=== PATIENT | female | born 1965 | race Caucasian/White ===

== ENCOUNTER → 2016-10-13 | Outpatient (CLI) | payer OTHER ==
[~2016-10-13] MED LIST: ALBU1AER9 INH; ASCO500T16 PO; ASTN NAE; CLIN300C10 PO; CLON0.5T3 PO; CLR10 PO; DICY20TA35 PO; DIVA250T PO; DIVA250T4 PO; FENO145T26 PO; FLUT0.15 NAE; IMD2X PO; LIDO5DIS10 TOP; LISI-791 PO; METH500T3 PO; MONT1TAB3 PO; MULTTAB58 PO; POLY1SOL6 OP; PRAV20TA2 PO; SIME80CH12 PO
== END | disposition home or self-care (01) ==
LOC: C.LABBFT 11:24
PROVIDERS: ATTEND Psychiatry & Neurology Neurology
DX: G40.909 Epilepsy, unspecified, not intractable, without status epilepticus (principal)

== ENCOUNTER → 2016-10-14 | Outpatient (CLI) | payer OTHER | END | disposition home or self-care (01) | LOC: C.LABBFT 14:30 | PROVIDERS: ATTEND Internal Medicine | DX: R39.9 Unspecified symptoms and signs involving the genitourinary system (principal) ==

== ENCOUNTER → 2016-12-01 | Outpatient (CLI) | payer OTHER ==
[2016-12-01 18:38] LABS: URINE APPEARANCE CLEAR (CLEAR); URINE BILIRUBIN NEG (NEG); URINE COLOR YELLOW; URINE EPITHELIAL CELL AUTO >30 /lpf (0-5); URINE NITRITE NEG (NEG); URINE SPECIFIC GRAVITY 1.019 (1.000-1.030); UROBILINOGEN NEG (NEG)
[2016-12-01 18:41] LABS: MANUAL MICROSCOPIC REQUIRED? NO; REVIEW REQ? YES
== END | disposition home or self-care (01) ==
LOC: C.LABSPEC 17:45
PROVIDERS: ATTEND Internal Medicine
DX: R41.82 Altered mental status, unspecified (principal)

== ENCOUNTER → 2016-12-26 | Outpatient (CLI) | payer OTHER | END | disposition home or self-care (01) | LOC: C.LABBFT 12:00 | PROVIDERS: ATTEND Neurological Surgery | DX: I62.03 Nontraumatic chronic subdural hemorrhage (principal); R56.9 Unspecified convulsions ==

== ENCOUNTER → 2017-02-15 | Outpatient (CLI) | payer OTHER ==
--- NOTE | 2017-02-16 06:02 | PAP/PSG TECHNICIAN REPORT ---
[facility] [employer] Polysomnogram Report Study name: None Report date: 02/16/2017 Study date: 02/15/2017 Referring Physician: Dr. Chavez Name: KASH SHARMA Interpreting Physician: Billy Chavez D.O. Date of : 1965 [employer]: Denzel Baron RPSGT. Sex: Female Age: 51 StudyType: PSG Weight: 186 lbs 16 inches Height: 51 years, Height 4' 10" Neck Circum: BMI: 38.87 Medications: ALBUTEROL 90 MCG/ACT, CLONAZEPAM 0.5 MG, DIVALPROEX SODIUM 250 MG, FENOFIBRATE 145 MG, FLUTICASONE PROPIONATE 50 MCG/ACT, LEVETIRACETAM 100 MG/MLLEVOTHYROXINE SODIUM 75 MCG, LISINOPRIL 10 MG, LOPERAMIDE HCL 2 MG, MONTELUKAST SODIUM 10 MG, QUETIAPINE FUMARATE 25 MG, SENNA S, SYSTANE ULTRA Patient History PATIENT HAS HISTORY OF SNORING, FATIGUE AND EXCESSIVE DAYTIME SLEEPINESS. SHE NORMALLY TAKES NAPS EVERYDAY IN THE AFTERNOON. SHE IS HERE TODAY FOR AN EVALUATION OF ERVIN. ESS = 6 RM 1 Parameters Monitored NPSG: E1-M2, E2-M1, Fp1-M2, Fp2-M1, F3-M2, F4-M2, F4-M1, C3-M2, C4-M2, C4-M1, O1-M2, O2-M2, O2-M1, T3-M2, T4-M1, P3-M2, P4-M1, CHIN1, CHIN2, HR, EKG, Legs, PFLOW, SNOR, FLOW, CFLOW, Tidal Volume, THOR, ABDO, SpO2, PLTH, CPRESS, ETCO2 Wave, ETCO2, pH Sleep Architecture Sleep Stages Time at Lights Off 10:29:43 PM STAGES Time (min.) TST (%) Time at Lights On 5:35:13 AM Wake 10.5 -- Total Recording Time (TRT) 426.50 min. N1 10.5 3 Total Sleep Period (TSP) 425.5 min. N2 269.5 65 Total Sleep Time (TST) 415.0min. N3 92.5 22 Awake Time 11.0 min. REM 42.5 10 Wake after Sleep Onset 10.5 min. Sleep Efficiency (SE) 98 % Sleep Onset Latency (GAGANDEEP) 0.0 min. Number of Stage 1 Shifts None Awakenings 10 Stage Changes 41 Number of REM periods 3 REM 42.5 10 REM Latency 144.5 min. NREM 372.5 90 Body Position Analysis Supine Right Left Side Prone Vertical Total Sleep Time (min.) 399.1 12.5 12.9 25.39 0.0 0.0 Total Sleep Time (%) 94% 3% 3% 6 0% N/A% Total Sleep Time REM (min.) 42.5 0.0 0.0 None 0.0 0.0 Total Sleep Time NREM (min.) 347.1 12.5 12.9 None 0.0 0.0 Intermittent Wake (min.) 9.5 1.0 0.0 None 0.0 0.0 Total Sleep Period (%) 94% None None None None None Arousals Myoclonus (PLM) * Events Count Index Events Count Index Spontaneous 7 1 Events Awake (PLMW) 14 80.0 Respiratory 0 0.0 Events Asleep w/ Arousal (PLMA) 3 0.4 PLM 3 0 Events Asleep w/o Arousal (PLMS) 14 2.0 Snoring 0 0 Total Asleep 17 2.5 Total 10 1 Total 31 4 Respiratory Analysis * CA OA MA CH H RERA Total Count 0 0 0 0 31 0 31 Index 0.0 0.0 0.0 0 4.5 0 4.5 Mean Duration 0.0 0.0 0.0 0.00 21.6 0.0 21.6 Longest Duration 0.0 0.0 0.0 0.00 0.0 0.0 39.5 Respiratory Event Summary Total Supine ~Supine Right Left Prone REM NREM Apneas Count 0 0 0 0 0 N/A 0 0 Index 0.0 0 0 0.0 0.0 N/A 0 0 Hypopneas (4% Desat) Count 31 31 0 0 0 N/A 25 6 Index 4.5 4.8 0 0.0 0.0 N/A 35.3 1.0 Apneas & All Hypopneas Count 31 31 0 0 0 N/A 25 6 Index 4.5 5 0 0 0 N/A 35.3 1.0 Respiratory Events ([employer] Commerce Developer+All Hyp+RERA) Count 31 31 0 0 0 N/A 25 6 Index 4.5 5 0 0.0 0.0 N/A 35.3 1.0 Respiratory Related Arousal Count 0 31 0 0 0 N/A 0 0 Index 0.0 0 0 0 0 N/A 0 0 Snoring Analysis Supine Right Left Prone REM NREM Total Snore duration 8.5 min Snores count 682 8 1 N/A 5 686 691 Snore mean duration 0.7 Sec Snores index 105 38 5 N/A 7.1 110.5 99.9 TST with snoring (%) 2.0% Desaturation Event Summary: Minimum %SpO2 Event Count Mean/Min/Max Duration(sec.) Desaturation Index % Time In Bed > 90 19 24.8 / 4.0 / 59.3 12.5 21.5 86 - 90 12 25.0 / 4.0 / 60.0 2.3 73.3 81 - 85 10 33.4 / 6.8 / 71.2 53.0 2.7 76 - 80 3 23.7 / 6.8 / 45.3 19.1 2.2 71 - 75 0 N/A 0.0 0.2 66 - 70 0 N/A 0.0 0.0 61 - 65 0 N/A 0.0 0.1 56 - 60 0 N/A 0.0 0.0 51 - 55 0 N/A 0.0 0.0 < 50 0 N/A 0.0 0.0 Total REM NREM Awake <50% 0.0 min. 0.0 min. 0.0 min. 0.0 min. 51 - 60% 0.0 min. 0.0 min. 0.0 min. 0.0 min. 61 - 70% 0.5 min. 0.2 min. 0.0 min. 0.3 min. 71 - 80% 10.3 min. 10.2 min. 0.0 min. 0.0 min. 81 - 90% 323.0 min. 24.1 min. 293.4 min. 5.4 min. 91 - 100% 91.3 min. 8.0 min. 79.1 min. 4.2 min. Average 89 85 89 89 Minimum SpO2 63 63 84 64 Desaturation Event Index 5.2 36.7 1.4 11.4 # Desat. Events below 89% 28 22 5 1 Time(%) with Saturation below 89% 31.4 6.4 24.4 0.6 Time(min.) with Saturation below 89% 133.3 27.0 103.6 2.7 Time (mins) REM (mins) NREM (mins) % of TST SpO2 Below 90% 33 24 N9 57.0 SpO2 Below 88% 14 0 0 15 Heart Rate Analysis Min (bpm) Max (bpm) Average (bpm) Awake 74 127 84 NREM 69 90 82 REM 71 96 85 Overall 69 96 82 Supplemental O2 Values Minimum O2 level: None Value Start Time End Time [employer] Comments Ms. Sharma slept in the supine, right and left positions. No cardiac arrhythmia noted. Leg movements noted. No bruxism noted. Snoring was noted and scored as a 2 on a scale of 1 through 5. (0=no snoring, 5=snoring loud enough to be heard through a closed door or down the hernandez way) Ms. Sharma awoke to use the restroom 0 times during the night. Ms. Sharma stated I slept as well as I do when I am in my own bed. The final report will be interpreted and signed by a sleep physician. The completed physician report will then be placed in the patient medical record. Therapy (cm H2O) 0 TIB (min.) 425.5 TST (min.) 415.0 Sleep Onset (min.) 0.0 REM Onset From Sleep (min.) 144.5 Sleep Efficiency % 98 Wakefulness (%) 2 Wakefulness (min.) 11.0 NREM 1 (%) 3 NREM 1 (min.) 10.5 NREM 2 (%) 65 NREM 2 (min.) 269.5 NREM 3 (%) 22 NREM 3 (min.) 92.5 REM (%) 10 REM (min.) 42.5 # Arousals 10 Arousal Index 1 # Snore 691 Snore Index 99.9 AHI 4.5 AHI Supine 5 AHI Non-Supine 0 NREM AHI 1.0 REM AHI 35.3 RDI 4.5 # Obstructive Apnea 0 # Central Apnea 0 # Mixed Apnea 0 # Hypopneas 31 RERAs 0 Total Respiratory Events 31 Time Below SpO2 89% (min.) 130.7 Mean NREM SpO2 (%) 89 Mean REM SpO2 (%) 85 Mean Sleep SpO2 (%) 89 Min NREM SpO2 (%) 84 Min REM SpO2 (%) 63 Position Supine (min.) 399.1 Position Non-supine (min.) 25.4 LM Index Sleep 2.5 LM Index NREM 1.8 LM Index REM 8.5 Mean Heart Rate (bpm) 82 Min Heart Rate (bpm) 69
--- NOTE | 2017-02-17 04:29 | POLYSOMNOGRAPH REPORT ---
CLINICAL DATA: The patient is a 51-year-old female with a history of cerebral palsy. She had a subdural hematoma in the fall of 2016. She has had excessive daytime somnolence. She also has snoring and disturbed nocturnal sleep. Her Warren score that she completed was only a 6. However, she naps daily. Her BMI is elevated to 38.87. The patient underwent an in-lab sleep study. SLEEP ARCHITECTURE: The total sleep period was 425.5 minutes. The total sleep time was 415 minutes. The sleep efficiency was excessively high at 98%. Her sleep onset latency was 0. Wake after sleep onset was 10.5 minutes. The REM latency was prolonged to 144.5 minutes and there were 3 REM periods during the night. Sleep consisted of stage N1 3%, stage N2 65%, stage N3 22%, and stage REM 10%. AROUSAL DATA: The patient had a total of 10 arousals including 17 spontaneous and 3 PLMs. The arousal index was only 1. PERIODIC LIMB MOVEMENT DATA: The patient had 17 periodic limb movements of sleep for an index of 2.5. There were only 3 arousals associated with limb movements for a PLM arousal index of 0.4. EKG: The underlying cardiac rhythm was normal sinus. The cardiac rates ranged from 69-96 beats per minute. No arrhythmia was noted. RESPIRATORY DATA: The patient had a total of 31 respiratory events, all hypopneas. The 4% desaturation rule was utilized to score hypopneas. The apnea-hypopnea index was 4.5 which is at the upper limits of normal. The mean duration of the hypopneas was 21.6 seconds. OXIMETRY DATA: The patient had an average saturation of 89%. The minimum saturation was 63%. She had 133.3 minutes with saturations less than 89%. MANUFACTURING COST ESTIMATOR'S COMMENTS: The patient slept in the supine, right, and left positions. No cardiac arrhythmia noted. Leg movements noted. No bruxism noted. Snoring was noted and scored as a 2 on a scale of 1 through 5. IMPRESSIONS: 1. Primary snoring. 2. Nocturnal hypoxia. COMMENTS: The patient had an extremely high sleep efficiency. Overall, her sleep architecture showed decreased REM sleep. Although she did not have much apnea, the majority of the events occurred during REM sleep. The apnea-hypopnea index in REM was 35.3. She had oxygen desaturation throughout the night and much of this occurred during times of REM sleep. The patient did have increased spindles and this is likely secondary to clonazepam that she takes at bedtime. The cause for her nocturnal hypoxia is not clear. She does have a history of asthma. RECOMMENDATIONS: 1. It is advised that the patient have an overnight pulse oximetry study done. 2. The patient has an elevated body mass index of 38.87. A weight reduction program is advised. Patients typically have fewer respiratory events and less snoring when they are not in the supine position. 3. She has complaints of excessive daytime somnolence. It is unknown if any of her medications may be contributing to that. In addition to clonazepam, she takes levetiracetam and quetiapine which may cause increased sleepiness. SALLY
== END | disposition home or self-care (01) ==
LOC: C.NEUR 21:00
PROVIDERS: ATTEND Internal Medicine Pulmonary Disease
DX: G47.33 Obstructive sleep apnea (adult) (pediatric) (principal)

== ENCOUNTER → 2017-03-30 | Outpatient (CLI) | payer OTHER ==
[2017-03-30 17:41] LABS: BASO % 0.6 %; BASO ABS # 0.02 K/uL (0-0.2); COMPLETE YES; EOS % 0.9 %; HEMATOCRIT 40.5 % (37-47); IG% 4.8 %; LYMPH % 29.3 %; LYMPH ABS # 0.98 K/uL (1.2-3.4); MEAN CORPUSCULAR HEMOGLOBIN 30.2 pg (25-34); MEAN CORPUSCULAR HGB CONC 32.8 g/dl (32-36); MEAN PLATELET VOLUME 9.9 fL (7.4-10.4); MONO % 9.6 %; NEUT % 54.8 %; PLATELET COUNT 113 K/uL (130-400); WHITE BLOOD COUNT 3.35 K/uL (4.8-10.8)
[2017-03-30 18:20] LABS: ALT/SGPT 25 U/L (12-78); AST/SGOT 28 U/L (15-37); BLOOD UREA NITROGEN 6 mg/dl (7-18); BUN/CREATININE RATIO 6.8 (10-20); CALCIUM 8.4 mg/dl (8.5-10.1); CARBON DIOXIDE 27 mmol/L (21-32); CHLORIDE 98 mmol/L (98-107); CREATININE 0.87 mg/dl (0.60-1.20); GLUCOSE 178 mg/dl (70-99); POTASSIUM 4.3 mmol/L (3.5-5.1); SODIUM 137 mmol/L (136-145)
[2017-03-30 18:31] LABS: ALB/GLOB RATIO 1.2 (0.9-2); ALKALINE PHOSPHATASE 38 U/L (45-117)
== END | disposition home or self-care (01) ==
LOC: C.LABBFT 11:56
PROVIDERS: ATTEND Physician Assistant
DX: G40.909 Epilepsy, unspecified, not intractable, without status epilepticus (principal); E03.9 Hypothyroidism, unspecified

== ENCOUNTER → 2017-04-07 | Outpatient (CLI) | payer OTHER ==
[2017-04-07 17:13] LABS: CHOLESTEROL/HDL RATIO 8.1
[2017-04-08 05:54] LABS: ESTIMATED AVERAGE GLUCOSE 120 mg/dl; HA1C FLAG Normal (Normal)
== END | disposition home or self-care (01) ==
LOC: C.LABBFT 16:47
PROVIDERS: ATTEND Internal Medicine
DX: E78.00 Pure hypercholesterolemia, unspecified (principal); R73.01 Impaired fasting glucose

== ENCOUNTER → 2017-09-27 | Outpatient (CLI) | payer OTHER ==
[~2017-09-27] MED LIST changes: -SIME80CH12 PO; +SIME80CH13 PO
--- NOTE | 2017-09-27 13:11 | DIAGNOSTIC IMAGING REPORT ---
KUB HISTORY: Acute low back pain M54.5 Low back pain COMPARISON: Lumbar spine radiographs of same day, CT abdomen and pelvis 12/08/2015 FINDINGS: The bowel gas pattern is non-obstructive. There is moderate stool volume of the cecum, ascending and transverse colon. There is no organomegaly. No renal calculi. No ureteral calculi. No pneumoperitoneum or pneumatosis. No fracture. Degenerative changes are noted within the spine, pelvis and hips. IMPRESSION: 1. Nonobstructive bowel gas pattern. 2. Moderate stool volume of the cecum, ascending and transverse colon. Electronically signed by: Osvaldo Carr M.D. 09/27/2017 1:10 PM Dictated Date/Time: 09/27/2017 1:09 PM
--- NOTE | 2017-09-27 13:21 | DIAGNOSTIC IMAGING REPORT ---
LUMBAR SPINE 5 VIEWS HISTORY: M54.5 Low back pain COMPARISON: None. FINDINGS: There is no fracture. No subluxation. Small endplate osteophytes and mild disc space narrowing at L4-5 and L5-S1. The sacrum is intact. IMPRESSION: No fracture or subluxation within the lumbar spine. Minor degenerative disc disease. Electronically signed by: Neeraj Ward M.D. 09/27/2017 1:20 PM Dictated Date/Time: 09/27/2017 1:19 PM
== END | disposition home or self-care (01) ==
LOC: C.RAD1850 12:46
PROVIDERS: ATTEND Nurse Practitioner
DX: R39.9 Unspecified symptoms and signs involving the genitourinary system (principal); M51.36 Other intervertebral disc degeneration, lumbar region; M54.5 Low back pain

== ENCOUNTER → 2017-10-18 | Outpatient (CLI) | payer OTHER ==
[2017-10-18 18:01] LABS: ALBUMIN 3.8 gm/dl (3.4-5.0); ALKALINE PHOSPHATASE 49 U/L (45-117); ALT/SGPT 30 U/L (12-78); AST/SGOT 22 U/L (15-37); BLOOD UREA NITROGEN 5 mg/dl (7-18); CALCIUM 9.1 mg/dl (8.5-10.1); CARBON DIOXIDE 29 mmol/L (21-32); CREATININE 0.66 mg/dl (0.60-1.20); GLUCOSE 123 mg/dl (70-99); POTASSIUM 4.2 mmol/L (3.5-5.1); SODIUM 134 mmol/L (136-145)
[2017-10-18 18:13] LABS: CHOLESTEROL 217 mg/dl (0-200); TOTAL PROTEIN 6.9 gm/dl (6.4-8.2)
== END | disposition home or self-care (01) ==
LOC: C.LABBFT 15:44
PROVIDERS: ATTEND Internal Medicine
DX: E78.5 Hyperlipidemia, unspecified (principal); E03.9 Hypothyroidism, unspecified; R73.01 Impaired fasting glucose

== ENCOUNTER → 2017-10-24 | Outpatient (CLI) | payer OTHER ==
--- NOTE | 2017-10-24 09:57 | DIAGNOSTIC IMAGING REPORT ---
GALLBLADDER-ABD LIMITED HISTORY: 51 years-old Female R10.11 Abdominal pain, RUQ (right upper quadrant)[id number] acute right upper quadrant abdominal pain. History of hepatic steatosis. COMPARISON: CT abdomen and pelvis 12/08/2015 TECHNIQUE: Multiple real-time sonographic images of the abdominal right upper quadrant were obtained assessing grayscale appearance and color flow. FINDINGS: Patient is mildly limited secondary to patient body habitus. Pancreas is partially obscured by bowel gas with the imaged portions appearing unremarkable. There is increased echogenicity with poor through transmission of the liver compatible with fatty infiltration. No focal hepatic mass lesions or intrahepatic biliary ductal dilation. Gallbladder is within normal limits without cholelithiasis, wall thickening or pericholecystic fluid. Common bile duct is normal, 4 mm. The right kidney appears unremarkable without hydronephrosis. IMPRESSION: 1. Hepatic steatosis. 2. No cholelithiasis or sonographic evidence of acute cholecystitis. 3. No biliary ductal dilation. The above report was generated using voice recognition software. It may contain grammatical, syntax or spelling errors. Electronically signed by: Osvaldo Carr M.D. 10/24/2017 9:56 AM Dictated Date/Time: 10/24/2017 9:53 AM
== END | disposition home or self-care (01) ==
LOC: C.ULTR 09:05
PROVIDERS: ATTEND Internal Medicine
DX: R10.11 Right upper quadrant pain (principal); K76.0 Fatty (change of) liver, not elsewhere classified

== ENCOUNTER → 2017-11-07 | Outpatient (CLI) | payer OTHER ==
[~2017-11-07] MED LIST changes: +CARBGEL OPB; +DICY20TA10 PO; +LEVO75TA5 PO; +QUET1TAB30 PO; +SINCALIDE INJ 1.6 MCG in SODIUM CHLORIDE 0.9% 100ML 100 ML IV ONE; +VNTHFA/IN INH
--- NOTE | 2017-11-07 11:15 | DIAGNOSTIC IMAGING REPORT ---
NUCLEAR MEDICINE HEPATOBILIARY SCAN WITH EJECTION FRACTION HISTORY: RT UPPER QUAD PAIN COMPARISON: Abdominal ultrasound 10/24/2017. TECHNIQUE: Immediately following the intravenous administration of 5 mCi Tc-99m Choletec, dynamic anterior abdominal imaging pre/post 1.6 mcg of Kinevac was performed. FINDINGS: Uniform hepatic tracer accumulation is shown. Prompt intrahepatic biliary excretion is seen. The gallbladder and common bile duct are visualized by 40 minutes. Slight delayed visualization of the small bowel at 71 minutes. The gall bladder ejection fraction following administration of Kinevac was 13% (normal >35%). IMPRESSION: 1. No evidence for cystic duct obstruction. 2. Gallbladder ejection fraction calculated to be abnormally low at 13 %. This could represent biliary dyskinesia. Electronically signed by: Neeraj Ward M.D. 11/07/2017 11:14 AM Dictated Date/Time: 11/07/2017 11:07 AM
== END | disposition home or self-care (01) ==
LOC: C.NUCL 08:25
PROVIDERS: ATTEND Internal Medicine
DX: R10.11 Right upper quadrant pain (principal)

== ENCOUNTER → 2017-11-20 | Outpatient (CLI) | payer OTHER ==
[~2017-11-20] MED LIST changes: -ALBU1AER9 INH; -CLIN300C10 PO; -DICY20TA35 PO; -DIVA250T PO; -LIDO5DIS10 TOP; -SINCALIDE INJ 1.6 MCG in SODIUM CHLORIDE 0.9% 100ML 100 ML IV ONE
[2017-11-20 12:32] LABS: HEMATOCRIT 37.2 % (37-47); HEMOGLOBIN 12.6 g/dL (12.0-16.0); MEAN CELL VOLUME 92.8 fL (80-100); MEAN CORPUSCULAR HEMOGLOBIN 31.4 pg (25-34); MEAN CORPUSCULAR HGB CONC 33.9 g/dl (32-36); RED CELL DISTRIBUTION WIDTH CV 13.4 % (11.5-14.5); RED CELL DISTRIBUTION WIDTH SD 45.5 fL (36.4-46.3)
[2017-11-20 12:34] LABS: MEAN PLATELET VOLUME 9.4 fL (7.4-10.4); PLATELET COUNT 93 K/uL (130-400)
[2017-11-20 13:14] LABS: BASO % 0.2 %; BASO ABS # 0.01 K/uL (0-0.2); EOS ABS # 0.04 K/uL (0-0.5); IG# 0.18 K/uL (0.00-0.02); LYMPH % 35.9 %; LYMPH ABS # 1.47 K/uL (1.2-3.4); MONO % 15.4 %; MONO ABS # 0.63 K/uL (0.11-0.59); NEUT % 43.1 %; NEUT ABS # 1.77 K/uL (1.4-6.5)
== END | disposition home or self-care (01) ==
LOC: C.LABBFT 10:14
PROVIDERS: ATTEND Psychiatry & Neurology Neurology
DX: G40.909 Epilepsy, unspecified, not intractable, without status epilepticus (principal)

== ENCOUNTER 2017-11-22 05:27 | Day surgery (SDC) | payer OTHER ==
[2017-11-08 09:58] VITALS: Ht 149.9 cm; Wt 80.6 kg
--- NOTE | 2017-11-08 10:54 | PAT Medication Instructions ---
Service Date Nov 08, 2017. Current Home Medication List Albuterol Hfa (Ventolin Hfa), 2 PUFFS INH UD PRN for PRN Ascorbic Acid (Ascorbic Acid), 500 MG PO QAM Azelastine Hcl (Astelin Nasal Bucks), 2 SPRAYS REJI BID Carboxymethylcellulose-Hyprome (Genteal), 1 APPLN OPB UD Clonazepam (Klonopin), 0.5 MG PO HS Dicyclomine Hcl (Dicyclomine Hcl), 1 TAB PO UD PRN for PRN Divalproex Sodium (Depakote Delay Rel), Unknown Dose PO BID Fenofibrate (Tricor), 145 MG PO QAM Fluticasone Propionate (Nasal) (Flonase Allergy Relief), 1 SPRAY REJI DAILY PRN for PRN Levothyroxine Sodium (Levothyroxine Sodium), Unknown Dose PO QAM Lisinopril (Zestril), 10 MG PO QAM Loperamide Hcl (Imodium), 2 MG PO BID PRN Loratadine (Claritin), 10 MG PO HS Methylcellulose (Laxative) (Citrucel), 1 TAB PO QAM Montelukast Sodium (Singulair), 10 MG PO HS Multiple Vitamin (Multivitamin), 1 TABLET PO QAM Polyethylene Glycol-Propylene (Systane Ultra), 1 DROPS OP QID Pravastatin Sodium (Pravachol), 20 MG PO HS Quetiapine Fumarate (Seroquel), 25 MG PO HS Simethicone (Mylicon), 80 MG PO QID PRN Medication Instructions For Your Scheduled Surgery - Hold the following medications 24 hours prior to surgery: Fenofibrate (Tricor), 145 MG PO QAM - Hold the following medications the morning of surgery: Multiple Vitamin (Multivitamin), 1 TABLET PO QAM Methylcellulose (Laxative) (Citrucel), 1 TAB PO QAM Loperamide Hcl (Imodium), 2 MG PO BID PRN Ascorbic Acid (Ascorbic Acid), 500 MG PO QAM Lisinopril (Zestril), 10 MG PO QAM Dicyclomine Hcl (Dicyclomine Hcl), 1 TAB PO UD PRN for PRN Simethicone (Mylicon), 80 MG PO QID PRN - Take the following medications the morning of surgery with a sip of water: Polyethylene Glycol-Propylene (Systane Ultra), 1 DROPS OP QID Azelastine Hcl (Astelin Nasal Bucks), 2 SPRAYS REJI BID (if needed) Levothyroxine Sodium (Levothyroxine Sodium), Unknown Dose PO QAM Divalproex Sodium (Depakote Delay Rel), Unknown Dose PO BID Fluticasone Propionate (Nasal) (Flonase Allergy Relief), 1 SPRAY REJI DAILY PRN for PRN (if needed) Albuterol Hfa (Ventolin Hfa), 2 PUFFS INH UD PRN for PRN (if needed, and bring it with you the morning of the surgery) - Take the following medications as scheduled the night before surgery: Loratadine (Claritin), 10 MG PO HS Polyethylene Glycol-Propylene (Systane Ultra), 1 DROPS OP QID Pravastatin Sodium (Pravachol), 20 MG PO HS Quetiapine Fumarate (Seroquel), 25 MG PO HS Azelastine Hcl (Astelin Nasal Bucks), 2 SPRAYS REJI BID Carboxymethylcellulose-Hyprome (Genteal), 1 APPLN OPB UD Clonazepam (Klonopin), 0.5 MG PO HS Montelukast Sodium (Singulair), 10 MG PO HS Divalproex Sodium (Depakote Delay Rel), Unknown Dose PO BID Dicyclomine Hcl (Dicyclomine Hcl), 1 TAB PO UD PRN for PRN Fluticasone Propionate (Nasal) (Flonase Allergy Relief), 1 SPRAY REJI DAILY PRN for PRN (if needed) Simethicone (Mylicon), 80 MG PO QID PRN If you have any questions please call us at [phone] or [phone] or [phone]
[2017-11-08 11:55] LABS: HEMOGLOBIN 12.4 g/dL (12.0-16.0); MEAN CELL VOLUME 92.8 fL (80-100); MEAN CORPUSCULAR HGB CONC 34.4 g/dl (32-36); MEAN PLATELET VOLUME 9.2 fL (7.4-10.4); PLATELET COUNT 98 K/uL (130-400); RED CELL DISTRIBUTION WIDTH CV 12.9 % (11.5-14.5); RED CELL DISTRIBUTION WIDTH SD 43.4 fL (36.4-46.3)
[2017-11-08 11:58] LABS: BASO % 0.7 %; BASO ABS # 0.04 K/uL (0-0.2); EOS % 0.7 %; EOS ABS # 0.04 K/uL (0-0.5); IG# 0.38 K/uL (0.00-0.02); LYMPH % 27.6 %; LYMPH ABS # 1.49 K/uL (1.2-3.4); MONO % 10.9 %; MONO ABS # 0.59 K/uL (0.11-0.59); NEUT % 53.1 %; NEUT ABS # 2.86 K/uL (1.4-6.5)
[~2017-11-22] VITALS: Ht 149.9 cm; Wt 80.6 kg
[2017-11-22] MEDS ORDERED: LACTATED RINGER'S 1000ML 1,000 ML IV SCH (06:00)
[2017-11-22 06:01] VITALS: BP 141/69; PULSE 95; TEMP 37.2; O2SAT 94
--- NOTE | 2017-11-22 06:08 | History and Physical ---
History & Physical Date Nov 22, 2017. Chief Complaint BILATERAL MIXED HEARING LOSS AND EUSTACHIAN TUBE DYSFUNCTION History of Present Illness The patient is a 51 year old female with complaints of BILATERAL MIXED HEARING LOSS AND EUSTACHIAN TUBE DYSFUNCTION WHICH IS UNRESPONSIVE TO MAXIMAL MEDICAL RX INCLUDING SYSTEMIC STEROIDS. PT C/O HEARING LOSS AND INTERMITTENT OTALGIA. Past Medical/Surgical History PMH: ABOVE, CEREBRAL PALSY, DEPRESSION, ANXIETY, DYSLIPIDEMIA, HTN, HYPOTHYROIDISM, ASTHMA, IBS, OBESITY, ERVIN, SEIZURES, SDH PSH: S/P CRANIOTOMY 2016, S/P DENTAL EXTRACTSIONS, S/P I&D BUTTOCK ABSCESS Additional History Hepatic Disease: No Endocrine Disorder: No Kidney Disease: No Hypertension: No Heart Disease: No Bleeding Tendencies: No Infectious Diseases: No Allergies Coded Allergies: Doxycycline (Unverified Allergy, Mild, HIVES, 11/22/17) Cefaclor (Unverified Allergy, Unknown, RASH, 11/22/17) Cefuroxime (Verified Allergy, Unknown, UNKNOWN, 11/22/17) Hydrochlorothiazide (Verified Allergy, Unknown, Unknown, 11/22/17) Nitrofurantoin (Unverified Allergy, Unknown, RASH, 12/08/15) Nortriptyline (Unverified Allergy, Unknown, unknown, 12/08/15) Penicillins (Unverified Allergy, Unknown, HIVES, 12/08/15) Sulfa Drugs (Unverified Allergy, Unknown, HIVES, 12/08/15) Sulfisoxazole (Unverified Allergy, Unknown, HIVES, 12/08/15) Home Medications Scheduled Ascorbic Acid (Ascorbic Acid), 500 MG PO QAM Azelastine Hcl (Astelin Nasal Warren), 2 SPRAYS REJI BID Carboxymethylcellulose-Hyprome (Genteal), 1 APPLN OPB UD Clonazepam (Klonopin), 0.5 MG PO HS Divalproex Sodium (Depakote Delay Rel), Unknown Dose PO BID Fenofibrate (Tricor), 145 MG PO QAM Levothyroxine Sodium (Levothyroxine Sodium), Unknown Dose PO QAM Lisinopril (Zestril), 10 MG PO QAM Loperamide Hcl (Imodium), 2 MG PO BID PRN Loratadine (Claritin), 10 MG PO HS Methylcellulose (Laxative) (Citrucel), 1 TAB PO QAM Montelukast Sodium (Singulair), 10 MG PO HS Multiple Vitamin (Multivitamin), 1 TABLET PO QAM Polyethylene Glycol-Propylene (Systane Ultra), 1 DROPS OP QID Pravastatin Sodium (Pravachol), 20 MG PO HS Quetiapine Fumarate (Seroquel), 25 MG PO HS Simethicone (Mylicon), 80 MG PO QID PRN Scheduled PRN Albuterol Hfa (Ventolin Hfa), 2 PUFFS INH UD PRN for PRN Dicyclomine Hcl (Dicyclomine Hcl), 1 TAB PO UD PRN for PRN Fluticasone Propionate (Nasal) (Flonase Allergy Relief), 1 SPRAY REJI DAILY PRN for PRN Physical Examination Skin: warm/dry, no rash Eyes: normal inspection, EOMI, sclerae normal ENT: + pertinent finding (R TM RETRACTION WITH SEROMUCINOUS EFFUSION, L TM RETRACTION) Head: normocephalic, atraumatic Neck: supple, no adenopathy, trachea midline Respiratory/Chest: lungs clear, normal breath sounds, no respiratory distress Cardiovascular: regular rate, rhythm, no edema, no murmur Neurologic/Psych: no motor/sensory deficits, alert, normal reflexes, oriented x 3 Diagnosis BILATERAL MIXED HEARING LOSS AND EUSTACHIAN TUBE DYSFUNCTION Plan of Treatment BILATERAL MYRINGOTOMY AND T-TUBE PLACEMENT
[2017-11-22] MEDS ORDERED: PROPOFOL IV EMULSION 10 MG/ML 20 ML VIAL IV ONE (06:24)
[2017-11-22] MEDS ORDERED: FENTANYL CITRATE INJ 50 MCG/1 ML 2 ML VIAL ONE (06:24)
[2017-11-22] MEDS ORDERED: LIDOCAINE HCL 2% 2 ML VIAL (20MG/ML) ONE (06:24)
[2017-11-22] MEDS ORDERED: ONDANSETRON INJ 2 MG/ML 2 ML VIAL ONE (06:24)
[2017-11-22] MEDS ORDERED: MIDAZOLAM HCL 1 MG/ML 2ML VIAL ONE (06:24)
[2017-11-22] MEDS ORDERED: PROMETHAZINE HCL INJ 12.5 MG in SODIUM CHLORIDE 0.9% 50ML 50 ML IV PRN (06:30)
[2017-11-22] MEDS ORDERED: HYDROmorphone INJ 1 MG/ML SYR IV PRN (06:30)
[2017-11-22] MEDS ORDERED: EpHEDrine SULFATE INJ 50 MG/ML AMP IV PRN (06:30)
[2017-11-22] MEDS ORDERED: FENTANYL CITRATE INJ 50 MCG/1 ML 2 ML VIAL IV PRN (06:30)
[2017-11-22] MEDS ORDERED: ATROPINE SULFATE 0.1 MG/ML 5ML SYR IV PRN (06:30)
[2017-11-22] MEDS ORDERED: ONDANSETRON INJ 2 MG/ML 2 ML VIAL IV PRN (06:30)
[2017-11-22] MEDS ORDERED: OFLOXACIN 0.3% OP SOLN 5 ML BTL ONE (06:53)
--- NOTE | 2017-11-22 07:16 | [facility] Operative Report ---
Operative Report Operative Date Nov 22, 2017. Pre-Operative Diagnosis Bilateral mixed hearing loss and eustachian tube dysfunction Post-Operative Diagnosis Same as preop Procedure(s) Performed Bilateral myringotomy and t-tube placement Surgeon H[employer] Travel Sales Consultant Surgeon(s) none Estimated Blood Loss 0 Findings R>L TM RETRACTION Specimens none, as per surgeon Anesthesia Type General I attest to the content of the Intraoperative Record and any orders documented therein. Any exceptions are noted below.
--- NOTE | 2017-11-22 07:19 | Discharge Instructions ---
Discharge Instructions Date of Service Nov 22, 2017. Admission Reason for Admission: B/L Eustachian Tubes Dysfunction, Mixed Conductive Discharge Discharge Diagnosis / Problem: SAME Discharge Goals Goal(s): Therapeutic intervention Activity Recommendations Activity Limitations: as noted below DRY EAR PRECAUTIONS WHILE TUBES ARE IN PLACE . Current Hospital Diet Patient's current hospital diet: Discharge Diet Recommended Diet: Regular Diet Procedures Procedures Performed: Bilateral myringotomy and t-tube placement Pending Studies Studies pending at discharge: no Laboratory Results Hemoglobin A1c Test 10/18/17 15:55 Range/Units Estimated Average Glucose 126 mg/dl Hemoglobin A1c 6.0 H 4.5-5.6 % Lipid Panel Test 10/18/17 15:55 Range/Units Triglycerides Level 675 H 0-150 mg/dl Cholesterol Level 217 H 0-200 mg/dl HDL Cholesterol 22 mg/dl Cholesterol/HDL Ratio 9.9 LDL Cholesterol, Calculated mg/dl Medical Emergencies . Who to Call and When: Medical Emergencies: If at any time you feel your situation is an emergency, please call 911 immediately. . Non-Emergent Contact Non-Emergency issues call your: Surgeon . . "Provider Documentation" section prepared by Dhiraj Clarke. . VTE Core Measure Inpt VTE Proph given/why not?: SCD's, Treatment not indicated
[2017-11-22] MEDS ORDERED: ACETAMINOPHEN 325 MG TAB PO PRN (07:30)
[2017-11-22 08:15] VITALS: BP 126/67; PULSE 82; TEMP 36.5; O2SAT 92
--- NOTE | 2017-11-22 08:15 | OPERATIVE REPORT ---
DATE OF OPERATION: 11/22/2017 PREOPERATIVE DIAGNOSES: 1. Right greater than left mixed hearing loss. 2. Bilateral Eustachian tube dysfunction. POSTOPERATIVE DIAGNOSES: 1. Right greater than left mixed hearing loss. 2. Bilateral Eustachian tube dysfunction. PROCEDURE: Bilateral myringotomy and T-tube placement. SURGEON: Dr. Clarke. ANESTHESIA: General laryngeal mask airway. ESTIMATED BLOOD LOSS: Zero. FINDINGS: Right greater than left tympanic membrane retraction with dry middle ear space bilaterally. SPECIMENS: None. COMPLICATIONS: None. INDICATIONS FOR THE PROCEDURE: The patient is a 51-year-old female with cerebral palsy, who has had a longstanding right greater than left mixed hearing loss for which she was never offered bilateral myringotomy and tube placement by her previous bite block maker. She does have significant sensorineural hearing loss and I did recommend hearing aids but she is not sure whether or not she can afford it. There is a significant conductive component to her hearing loss and I offered bilateral myringotomy and tube placement in hopes that she would have improvement in her hearing as well as relief of her intermittent right greater than left otalgia. She presents for the above-mentioned procedure on an outpatient elective basis. DETAILS OF PROCEDURE: After informed consent had been obtained from the patient, the patient was wheeled to the operating room and placed on the operating room table in the supine position. Monitors were placed after induction of general anesthesia via laryngeal mask airway, the patient's head was gently turned to the left and a speculum was inserted into the right external auditory canal. The operating microscope was wheeled in and used to perform the procedure. Suction was used to remove excess cerumen. A myringotomy knife was used to make a radial incision in the anterior inferior quadrant of the tympanic membrane and the middle ear space was found to be dry. Of note, there was significant right tympanic membrane retraction. A modified Marion T-tube was then placed with a T-tube wire inserter. Floxin drops were instilled into the middle ear space and a cotton ball was placed into the conchal bowl. The left side was then addressed in a similar fashion with similar intraoperative findings, although there was not as much tympanic membrane retraction on that side. This marked the end of the case. The patient tolerated the procedure well and there were no apparent complications. The patient's laryngeal mask airway was removed and she was transferred to the recovery room in stable condition. I attest to the content of the Intraoperative Record and any orders documented therein. Any exception s are noted below.
--- NOTE | 2017-11-22 08:16 | Anesthesiology Progress Note ---
Anesthesia Post Op Note Date & Time Nov 22, 2017 at 08:15 Vital Signs Pain Intensity: 3 Vital Signs Past 12 Hours Date Time Temp Pulse Resp B/P (MAP) Pulse Ox O2 Delivery O2 Flow Rate FiO2 11/22/17 08:00 36.8 90 23 103/70 92 Room Air 11/22/17 07:50 87 22 109/72 95 Room Air 11/22/17 07:40 90 18 101/68 94 Room Air 11/22/17 07:36 93 16 116/74 94 11/22/17 07:26 36.4 93 16 112/80 96 11/22/17 06:01 37.2 95 20 141/69 (93) 94 Room Air Notes Mental Status: alert / awake / arousable, participated in evaluation Pt Amnestic to Procedure: Yes Nausea / Vomiting: adequately controlled Pain: adequately controlled Airway Patency, RR, SpO2: stable & adequate BP & HR: stable & adequate Hydration State: stable & adequate Anesthetic Complications: no major complications apparent Awake, doing well, VSS. Ready for d/c
[2017-11-22 08:45] VITALS: BP 126/67; PULSE 86; TEMP 36.5; O2SAT 92
== END 2017-11-22 09:25 | disposition home or self-care (01) ==
LOC: C.ACU 05:27
DX: H69.83 Other specified disorders of Eustachian tube, bilateral (principal); H90.6 Mixed conductive and sensorineural hearing loss, bilateral; F41.8 Other specified anxiety disorders; E78.5 Hyperlipidemia, unspecified; E78.00 Pure hypercholesterolemia, unspecified; I10 Essential (primary) hypertension; E03.9 Hypothyroidism, unspecified; J45.909 Unspecified asthma, uncomplicated; G80.9 Cerebral palsy, unspecified; K58.9 Irritable bowel syndrome, unspecified; E66.9 Obesity, unspecified; G40.909 Epilepsy, unspecified, not intractable, without status epilepticus; Z87.440 Personal history of urinary (tract) infections; Z87.81 Personal history of (healed) traumatic fracture; Z83.6 Family history of other diseases of the respiratory system; Z83.3 Family history of diabetes mellitus; Z82.49 Family history of ischemic heart disease and other diseases of the circulatory system; Z80.3 Family history of malignant neoplasm of breast; Z88.0 Allergy status to penicillin; Z88.1 Allergy status to other antibiotic agents; Z88.2 Allergy status to sulfonamides; Z88.8 Allergy status to other drugs, medicaments and biological substances; Z98.41 Cataract extraction status, right eye; Z98.42 Cataract extraction status, left eye

== ENCOUNTER 2018-01-11 09:06 | Observation (INO) | payer OTHER ==
[2018-01-01 09:33] VITALS: Ht 149.9 cm; Wt 80.5 kg
--- NOTE | 2018-01-01 10:16 | PAT Medication Instructions ---
"Service Date Jan 01, 2018. Current Home Medication List Albuterol Hfa (Ventolin Hfa), 2 PUFFS INH UD PRN for PRN Ascorbic Acid (Ascorbic Acid), 500 MG PO QAM Azelastine Hcl (Astelin Nasal Gamaliel), 2 SPRAYS REJI BID Calcium Citrate-Vitamin D (Citracal + D3 Maximum), 2 TAB PO QAM Carboxymethylcellulose-Hyprome (Genteal), 1 APPLN OPB UD Clonazepam (Klonopin), 0.5 MG PO HS Dicyclomine Hcl (Dicyclomine Hcl), 1 TAB PO UD PRN for PRN Divalproex Sodium (Depakote Er), 3 TAB PO BID Fenofibrate (Tricor), 145 MG PO QAM Fluticasone Propionate (Nasal) (Flonase Allergy Relief), 1 SPRAY REJI DAILY PRN for PRN Folic Acid (Folvite), 1 MG PO QAM Home O2 Therapy (Oxygen), 2 LITERS NA HS Levothyroxine Sodium (Levothyroxine Sodium), 1 TAB PO QAM Lisinopril (Zestril), 10 MG PO QAM Loperamide Hcl (Imodium), 2 MG PO BID PRN Loratadine (Claritin), 10 MG PO Q2D PRN for PRN Methylcellulose (Laxative) (Citrucel), 1-2 TAB PO QAM Montelukast Sodium (Singulair), 10 MG PO Q2D PRN for PRN Multiple Vitamin (Multivitamin), 1 TABLET PO QAM Nystatin/Triamcinolone (Mycogen || ), 1 DOSE TOP PRN Polyethylene Glycol-Propylene (Systane Ultra), 1 DROPS OP QID Pravastatin Sodium (Pravachol), 20 MG PO HS Quetiapine Fumarate (Seroquel), 25 MG PO HS Saline ([place]), 1 SPRY REJI Q8 PRN for PRN Simethicone (Mylicon), 80 MG PO QID PRN Medication Instructions For Your Scheduled Surgery -Continue as directed: Home O2 Therapy (Oxygen), 2 LITERS NA HS - Hold the following medications 24 hours prior to surgery: Nystatin/Triamcinolone (Mycogen || ), 1 DOSE TOP PRN - Hold the following medications the morning of surgery: Ascorbic Acid (Ascorbic Acid), 500 MG PO QAM Calcium Citrate-Vitamin D (Citracal + D3 Maximum), 2 TAB PO QAM Dicyclomine Hcl (Dicyclomine Hcl), 1 TAB PO UD PRN for PRN Fenofibrate (Tricor), 145 MG PO QAM Folic Acid (Folvite), 1 MG PO QAM Lisinopril (Zestril), 10 MG PO QAM Loperamide Hcl (Imodium), 2 MG PO BID PRN Loratadine (Claritin), 10 MG PO Q2D PRN for PRN Methylcellulose (Laxative) (Citrucel), 1-2 TAB PO QAM Multiple Vitamin (Multivitamin), 1 TABLET PO QAM Simethicone (Mylicon), 80 MG PO QID PRN - Take the following medications the morning of surgery with a sip of water: Albuterol Hfa (Ventolin Hfa), 2 PUFFS INH UD PRN for PRN (if needed, and bring it with you to the hospital) Azelastine Hcl (Astelin Nasal Gamaliel), 2 SPRAYS REJI BID Carboxymethylcellulose-Hyprome (Genteal), 1 APPLN OPB UD Divalproex Sodium (Depakote Er), 3 TAB PO BID Fluticasone Propionate (Nasal) (Flonase Allergy Relief), 1 SPRAY REJI DAILY PRN for PRN (if needed) Levothyroxine Sodium (Levothyroxine Sodium), 1 TAB PO QAM Montelukast Sodium (Singulair), 10 MG PO Q2D PRN for PRN (if needed) Polyethylene Glycol-Propylene (Systane Ultra), 1 DROPS OP QID Saline ([place]), 1 SPRY REJI Q8 PRN for PRN (if needed) - Take the following medications as scheduled the night before surgery: Albuterol Hfa (Ventolin Hfa), 2 PUFFS INH UD PRN for PRN (if needed) Azelastine Hcl (Astelin Nasal Gamaliel), 2 SPRAYS REJI BID Carboxymethylcellulose-Hyprome (Genteal), 1 APPLN OPB UD Clonazepam (Klonopin), 0.5 MG PO HS Dicyclomine Hcl (Dicyclomine Hcl), 1 TAB PO UD PRN for PRN (if needed) Divalproex Sodium (Depakote Er), 3 TAB PO BID Fluticasone Propionate (Nasal) (Flonase Allergy Relief), 1 SPRAY REJI DAILY PRN for PRN (if needed) Loperamide Hcl (Imodium), 2 MG PO BID PRN (if needed) Loratadine (Claritin), 10 MG PO Q2D PRN for PRN (if needed) Montelukast Sodium (Singulair), 10 MG PO Q2D PRN for PRN (if needed) Polyethylene Glycol-Propylene (Systane Ultra), 1 DROPS OP QID Pravastatin Sodium (Pravachol), 20 MG PO HS Quetiapine Fumarate (Seroquel), 25 MG PO HS Saline ([place]), 1 SPRY REJI Q8 PRN for PRN (if needed) Simethicone (Mylicon), 80 MG PO QID PRN (if needed) If you have any questions please call us at [phone] or [phone] or [phone]"
[2018-01-01 11:14] LABS: HEMATOCRIT 37.5 % (37-47); HEMOGLOBIN 12.5 g/dL (12.0-16.0); MEAN CELL VOLUME 93.3 fL (80-100); MEAN CORPUSCULAR HEMOGLOBIN 31.1 pg (25-34); MEAN CORPUSCULAR HGB CONC 33.3 g/dl (32-36); RED CELL DISTRIBUTION WIDTH CV 13.3 % (11.5-14.5); RED CELL DISTRIBUTION WIDTH SD 45.2 fL (36.4-46.3); WHITE BLOOD COUNT 5.12 K/uL (4.8-10.8)
[2018-01-01 11:18] LABS: MEAN PLATELET VOLUME 9.5 fL (7.4-10.4); PLATELET COUNT 97 K/uL (130-400)
[2018-01-01 11:22] LABS: CALCIUM 8.8 mg/dl (8.5-10.1); CREATININE 0.6 mg/dl (0.60-1.20); POTASSIUM 4.3 mmol/L (3.5-5.1)
[2018-01-01 11:46] LABS: BASO % 0.4 %; BASO ABS # 0.02 K/uL (0-0.2); EOS % 2.1 %; EOS ABS # 0.11 K/uL (0-0.5); IG# 0.24 K/uL (0.00-0.02); LYMPH % 29.9 %; LYMPH ABS # 1.53 K/uL (1.2-3.4); MONO % 11.1 %; MONO ABS # 0.57 K/uL (0.11-0.59); NEUT % 51.8 %; NEUT ABS # 2.65 K/uL (1.4-6.5)
[~2018-01-11] VITALS: Ht 149.9 cm; Wt 80.5 kg
[2018-01-11] VITALS (12 sets, daily range): BP systolic 117–150; BP diastolic 69–87; PULSE 83–109; TEMP 36.3–37; O2SAT 92–98
[~2018-01-11 09:06] MED LIST changes: +CALC1TAB9 PO; +CIPROFLOXACIN / D5W 400 MG IV SCH; +DIVA250T PO; -DIVA250T4 PO; +FOLI1TAB8 PO; +GENERAL ORDER PROBLEM SCH; +LACTATED RINGER'S 1000ML 1,000 ML IV SCH; +NYSTCRE11 TOP; +OXGN; +SALI0.657 NAE
--- NOTE | 2018-01-11 10:02 | History & Physical Bridge Note ---
H&P Re-Evaluation Bridge Note: I have examined the patient, reviewed the History & Physical and in the interval since the performance of the History & Physical I have noted the following changes of clinical significance: No changes noted
[2018-01-11] MEDS ORDERED: BUPIVACAINE/EPINEPHRINE 0.5% MPF 1:200,000 30 ML VIAL ONE (10:11)
[2018-01-11] MEDS ORDERED: PROPOFOL IV EMULSION 10 MG/ML 20 ML VIAL IV ONE (10:13)
[2018-01-11] MEDS ORDERED: DEXAMETHASONE SOD INJ 4 MG/ML VIAL ONE (10:13)
[2018-01-11] MEDS ORDERED: NEOSTIGMINE METHYLSULFATE 5 MG/5 ML SYR ONE (10:13)
[2018-01-11] MEDS ORDERED: ONDANSETRON INJ 2 MG/ML 2 ML VIAL ONE (10:13)
[2018-01-11] MEDS ORDERED: LIDOCAINE HCL 2% 2 ML VIAL (20MG/ML) ONE (10:13)
[2018-01-11] MEDS ORDERED: MIDAZOLAM HCL 1 MG/ML 2ML VIAL ONE (10:13)
[2018-01-11] MEDS ORDERED: GLYCOPYRROLATE INJ 0.2 MG/ML VIAL ONE (10:13)
[2018-01-11] MEDS ORDERED: FENTANYL CITRATE INJ 50 MCG/1 ML 2 ML VIAL ONE ×2 (10:13→11:37)
[2018-01-11] MEDS ORDERED: LABETALOL HCL IV 5 MG/ML 20ML IV ONE (11:05)
[2018-01-11] MEDS ORDERED: ONDANSETRON INJ 2 MG/ML 2 ML VIAL IV PRN ×2 (11:15→11:45)
[2018-01-11] MEDS ORDERED: ATROPINE SULFATE 0.1 MG/ML 5ML SYR IV PRN (11:15)
[2018-01-11] MEDS ORDERED: HYDROmorphone INJ 1 MG/ML SYR IV PRN (11:15)
[2018-01-11] MEDS ORDERED: EpHEDrine SULFATE INJ 50 MG/ML AMP IV PRN (11:15)
[2018-01-11] MEDS ORDERED: MEPERIDINE HCL 25 MG/ML CARP IV PRN (11:15)
[2018-01-11] MEDS ORDERED: FENTANYL CITRATE INJ 50 MCG/1 ML 2 ML VIAL IV PRN (11:15)
--- NOTE | 2018-01-11 11:17 | [facility] Post Operative Brief Note ---
Immediate Operative Summary Operative Date Jan 11, 2018. Pre-Operative Diagnosis Biliary Dyskinesia Post-Operative Diagnosis same Procedure(s) Performed Laparoscopic Cholecystectomy Surgeon Dr. Braydon Woodruff Master Glazier Surgeon(s) Carey Lopez PA-C Estimated Blood Loss 5mL Findings Consistent with Post-Op Diagnosis Specimens Permanent A. Gallbladder and contents Anesthesia Type General Complication(s) none
[2018-01-11] MEDS ORDERED: SODIUM CHLORIDE 0.9% 1000ML 1,000 ML IV SCH (11:31)
[2018-01-11] MEDS ORDERED: ALBUTEROL HFA INHALER 8.5 GM INH ONE (11:31)
--- NOTE | 2018-01-11 11:34 | Discharge Instructions ---
Discharge Instructions Date of Service Jan 11, 2018. Admission Reason for Admission: Biliary Dyskinesia, Cerebral Palsy Discharge Discharge Diagnosis / Problem: Biliary Dyskinesia, Cerebral Palsy Discharge Goals Goal(s): Decrease discomfort, Improve function Activity Recommendations Activity Limitations: as noted below Lifting Limitations: no more than 10 pounds Exercise/Sports Limitations: until after follow-up appointment May Resume Sexual Activity: after follow-up appointment Shower/Bathe: tomorrow Driving or Machine Use: resume 3 days after discharge . Instructions / Follow-Up Instructions / Follow-Up You have surgical glue, Dermabond, over your incisions along with gauze dressings. You may remove the gauze dressings in 48 hrs. You may shower tomorrow AM. Please follow-up with Dr. Woodruff in the general surgery clinic in 1-2 weeks. Please call the office at [phone] to make an appointment if you do not have one already. Please call the office with any questions or concerns. Current Hospital Diet Patient's current hospital diet: Discharge Diet Recommended Diet: Regular Diet Procedures Procedures Performed: Laparoscopic Cholecystectomy Pending Studies Studies pending at discharge: yes List of pending studies: Path report. Laboratory Results Hemoglobin A1c Test 10/18/17 15:55 Range/Units Estimated Average Glucose 126 mg/dl Hemoglobin A1c 6.0 H 4.5-5.6 % Lipid Panel Test 10/18/17 15:55 Range/Units Triglycerides Level 675 H 0-150 mg/dl Cholesterol Level 217 H 0-200 mg/dl HDL Cholesterol 22 mg/dl Cholesterol/HDL Ratio 9.9 LDL Cholesterol, Calculated mg/dl Medical Emergencies . Who to Call and When: Medical Emergencies: If at any time you feel your situation is an emergency, please call 911 immediately. . Non-Emergent Contact Non-Emergency issues call your: Primary Care Provider, Surgeon Call Non-Emergent contact if: temperature is above 101.5, your pain is not controlled, wound has increased drainage, wound has increased redness . "Provider Documentation" section prepared by Carey Lopez. .
[2018-01-11] MEDS ORDERED: HYDR-5688 PO (11:35)
[2018-01-11] MEDS ORDERED: HYDROCODONE/ACETAMIN 5/325MG TAB PO PRN ×4 (11:45→14:15)
--- NOTE | 2018-01-11 11:51 | [facility] Operative Report ---
Operative Report Operative Date Jan 11, 2018. Pre-Operative Diagnosis Biliary Dyskinesia Post-Operative Diagnosis same Procedure(s) Performed Laparoscopic Cholecystectomy Surgeon Dr. Braydon Woodruff Gas Engine Performance Engineer Surgeon(s) Carey Lopez PA-C Estimated Blood Loss 5mL Specimens Permanent A. Gallbladder and contents Anesthesia Type General Complication(s) none Description of Procedure After informed consent was obtained the patient was taken to the operating room and placed in the supine position. After successful intubation the abdomen was sterilely prepped and draped in usual fashion. A periumbilical incision was made with an 11 blade scalpel and carried down through the soft tissue using electrocautery. The anterior rectus fascia was opened using electrocautery and 2 #0 Vicryl stay sutures were placed. The peritoneum was elevated with hemostats and incised under direct vision using Metzenbaum scissors. A finger sweep was performed and a 12 mm Lentz trocar was placed. The abdomen was insufflated to 18 mmHg. The laparoscope was inserted and the abdomen was examined in 360. No gross abnormalities were identified. A subxiphoid 5 mm port and 2 right upper quadrant 5 mm ports were placed under direct vision. The patient was placed in a reverse Trendelenburg position and slightly air- planed to the left. The gallbladder was grasped and elevated superiorly and laterally. A [place] dissector was used to take down adhesions around the neck of the gallbladder. The cystic duct was identified and skeletonized. It was clipped twice proximally and once distally and transected using a laparoscopic scissor. In similar fashion the cystic artery was identified and skeletonized clipped and divided. The gallbladder was removed from the gallbladder fossa with electrocautery. There was a small hole made in the gallbladder during this process. Immediately after removing the gallbladder we suctioned and irrigated the entire right upper quadrant until all the irrigant was clear. It was placed into an Endo Catch bag. Thorough irrigation was performed again. At the end of the procedure there was adequate hemostasis and no evidence of any bile leaks. A final look around the abdomen showed no other abnormalities other than a fatty liver. The gallbladder and trochars were all removed and the abdomen was desufflated. The fascia of the camera port was closed using 0 Vicryl in a [id number] fashion. All the wounds were irrigated and closed using 4-0 Monocryl. Marcaine was injected around them for postoperative analgesia and skin glue used as a dressing. The patient was awaken extubated and transferred to recovery in stable condition. My physician captain's assistant was present throughout the entire case. She helps prep the patient. She helped with exposure for trocar placement. She helped retract and manipulate the gallbladder during dissection. She also helped with wound closure and dressing placement. I attest to the content of the Intraoperative Record and any orders documented therein. Any exceptions are noted below.
[2018-01-11] MEDS: LABETALOL HCL IV 5 MG/ML 20ML IV PRN ×3 (11:55→12:05)
--- NOTE | 2018-01-11 12:55 | Anesthesiology Progress Note ---
Anesthesia Post Op Note Date & Time Jan 11, 2018 at 12:55 Vital Signs Pain Intensity: 0 Vital Signs Past 12 Hours Date Time Temp Pulse Resp B/P (MAP) Pulse Ox O2 Delivery O2 Flow Rate FiO2 01/11/18 12:45 80 16 145/90 93 Nasal Cannula 3 01/11/18 12:40 36.2 85 16 157/88 94 Nasal Cannula 3 01/11/18 12:30 83 16 158/96 97 Oxymask 3 01/11/18 12:20 80 16 149/93 97 Oxymask 5 01/11/18 12:10 81 16 142/93 98 Oxymask 5 01/11/18 12:00 79 16 159/101 100 Oxymask 10 01/11/18 11:50 79 16 159/105 99 Oxymask 10 01/11/18 11:42 36.0 87 16 150/92 95 Oxymask 10 01/11/18 09:50 36.3 83 18 127/73 (91) 98 Room Air Notes Mental Status: alert / awake / arousable, participated in evaluation Pt Amnestic to Procedure: Yes Nausea / Vomiting: adequately controlled Pain: adequately controlled Airway Patency, RR, SpO2: stable & adequate BP & HR: stable & adequate Hydration State: stable & adequate Anesthetic Complications: no major complications apparent
--- NOTE | 2018-01-11 14:07 | History & Physical Bridge Note ---
H&P Re-Evaluation Bridge Note: I have examined the patient, reviewed the History & Physical and in the interval since the performance of the History & Physical I have noted the following changes of clinical significance: No changes noted. patient having trouble becoming alert s/p lap [place]. lives alone. I feel it would be best to observe here for 23 hours. will admit for observation and post op symptom control.
[2018-01-11] MEDS ORDERED: ALBUTEROL HFA 8 GM INHALER INH PRN (14:15)
[2018-01-11] MEDS ORDERED: FLUTICASONE PROPIONATE NA SPR 16 GM BTL NAE PRN (14:15)
[2018-01-11] MEDS ORDERED: CARBOXYMETHYLCELLULOSE OPB SCH (14:15)
[2018-01-11] MEDS ORDERED: ONDANSETRON 4 MG TAB PO PRN (14:15)
[2018-01-11] MEDS ORDERED: LORATADINE 10 MG TAB PO PRN (14:15)
[2018-01-11] MEDS ORDERED: HYPROMELLOSE OPB SCH (14:15)
[2018-01-11] MEDS ORDERED: DICYCLOMINE HCL 20 MG TAB PO PRN (14:15)
[2018-01-11] MEDS ORDERED: IV FLUIDS COMPLETED PRN (16:00)
[2018-01-11] MEDS: ARTIFICIAL TEARS OP OINT 3.5 GM TUBE OP SCH ×2 (16:39→20:56)
[2018-01-11] MEDS: LACTATED RINGER'S 1000ML 1,000 ML IV SCH (16:39)
[2018-01-11] MEDS: ACETAMINOPHEN 325 MG TAB PO PRN ×2 (16:40→21:01)
[2018-01-11] MEDS: DIVALPROEX 250 MG EXTENDED REL TAB PO SCH (20:57)
[2018-01-11] MEDS ORDERED: PRAVASTATIN SOD 20 MG TAB PO SCH (21:00)
[2018-01-11] MEDS ORDERED: QUETIAPINE FUMARATE 25 MG TAB PO SCH (21:00)
[2018-01-11] MEDS ORDERED: MONTELUKAST SOD 10 MG TAB PO SCH (21:00)
[2018-01-11] MEDS ORDERED: CLONAZEPAM 0.5 MG TAB PO SCH (21:00)
[2018-01-12 03:15] VITALS: BP 113/75; PULSE 88; TEMP 36.6; O2SAT 97
[2018-01-12] MEDS: LACTATED RINGER'S 1000ML 1,000 ML IV SCH (04:43)
[2018-01-12] MEDS ORDERED: LEVOTHYROXINE 75 MCG TAB PO SCH (06:00)
--- NOTE | 2018-01-12 06:49 | Surgery Progress Note ---
Surgery Progress Note Date of Service Jan 12, 2018. Subjective Post OP Day: 1 + feeling well, + complaints (some incisional tenderness), + ambulating, + pain controlled, + nausea (mild last night, resolved), + diet (Tolerating regular diet), No vomiting Objective Vital Signs: Date Time Temp Pulse Resp B/P (MAP) Pulse Ox O2 Delivery O2 Flow Rate FiO2 01/12/18 03:15 36.6 88 18 113/75 (88) 97 Room Air 01/11/18 23:30 Nasal Cannula 2.0 01/11/18 22:52 37.0 100 20 127/75 (92) 95 Nasal Cannula 2.0 01/11/18 19:52 36.5 109 17 125/78 (94) 96 Nasal Cannula 2.0 01/11/18 17:56 36.8 102 16 117/81 (93) 95 Nasal Cannula 2.0 01/11/18 17:00 36.7 105 17 134/82 (99) 97 Nasal Cannula 2.0 01/11/18 16:02 36.4 99 16 146/87 (106) 98 Nasal Cannula 2.0 01/11/18 15:39 37.0 97 16 122/79 (93) 96 Nasal Cannula 2.0 01/11/18 15:14 96 Nasal Cannula 3.0 01/11/18 15:10 36.6 99 18 139/69 (92) 95 Nasal Cannula 3.0 01/11/18 15:00 Nasal Cannula 2.0 01/11/18 13:55 36.3 85 18 145/84 94 Nasal Cannula 4 01/11/18 13:25 36.3 89 18 134/83 94 Nasal Cannula 2 01/11/18 12:55 36.4 86 18 150/80 92 Nasal Cannula 2 01/11/18 12:45 80 16 145/90 93 Nasal Cannula 3 01/11/18 12:40 36.2 85 16 157/88 94 Nasal Cannula 3 01/11/18 12:30 83 16 158/96 97 Oxymask 3 01/11/18 12:20 80 16 149/93 97 Oxymask 5 01/11/18 12:10 81 16 142/93 98 Oxymask 5 01/11/18 12:00 79 16 159/101 100 Oxymask 10 01/11/18 11:50 79 16 159/105 99 Oxymask 10 01/11/18 11:42 36.0 87 16 150/92 95 Oxymask 10 01/11/18 09:50 36.3 83 18 127/73 (91) 98 Room Air General Appearance: WD/WN, no apparent distress Head: normocephalic, atraumatic Respiratory/Chest: no respiratory distress, no accessory muscle use Abdomen: soft, no organomegaly, no pulsatile mass, + distended (mild), + tenderness (Incisional) Incision(s): clean, dry, intact, no erythema, no drainage Laboratory Results: Results Past 24 Hours Test 01/11/18 09:27 01/12/18 04:44 Range/Units Assessment & Plan POD #1 s/p lap [place] Doing well, mild incision tenderness and abdominal distention, pain controlled, tolerating regular diet, No N/V. AM labs pending. Probable d/c today if she continues to do well. Will discuss findings with Dr. Woodruff. Please contact with questions or concerns.
[2018-01-12 07:06] VITALS: BP 108/71; PULSE 91; TEMP 36.7; O2SAT 97
--- NOTE | 2018-01-12 08:22 | Anesthesiology Progress Note ---
Anesthesia Post Op Note Date & Time Jan 12, 2018 at 08:21 Vital Signs Pain Intensity: 0.0 Vital Signs Past 12 Hours Date Time Temp Pulse Resp B/P (MAP) Pulse Ox O2 Delivery O2 Flow Rate FiO2 01/12/18 07:30 Nasal Cannula 2.0 01/12/18 07:06 36.7 91 18 108/71 (83) 97 Room Air 01/12/18 03:15 36.6 88 18 113/75 (88) 97 Room Air 01/11/18 23:30 Nasal Cannula 2.0 01/11/18 22:52 37.0 100 20 127/75 (92) 95 Nasal Cannula 2.0 Notes PETER patient, surgeon in room talking with her. She was up in a chair. no s/s distress noted.
[2018-01-12 08:34] LABS: BASO % 0.1 %; BASO ABS # 0.01 K/uL (0-0.2); HEMOGLOBIN 11.8 g/dL (12.0-16.0); IG# 0.23 K/uL (0.00-0.02); LYMPH % 9.3 %; LYMPH ABS # 1.02 K/uL (1.2-3.4); MEAN CELL VOLUME 90.7 fL (80-100); MEAN CORPUSCULAR HEMOGLOBIN 31.5 pg (25-34); MEAN CORPUSCULAR HGB CONC 34.7 g/dl (32-36); MONO % 9.3 %; MONO ABS # 1.02 K/uL (0.11-0.59); NEUT % 79.2 %; NEUT ABS # 8.64 K/uL (1.4-6.5); PLATELET COUNT 113 K/uL (130-400); RED CELL DISTRIBUTION WIDTH CV 12.9 % (11.5-14.5); RED CELL DISTRIBUTION WIDTH SD 42.6 fL (36.4-46.3); WHITE BLOOD COUNT 10.92 K/uL (4.8-10.8)
[2018-01-12] MEDS: DIVALPROEX 250 MG EXTENDED REL TAB PO SCH (08:46)
[2018-01-12] MEDS: ARTIFICIAL TEARS OP OINT 3.5 GM TUBE OP SCH ×3 (08:46→12:14)
[2018-01-12] MEDS ORDERED: FENOFIBRATE 145 MG TAB PO SCH (09:00)
[2018-01-12] MEDS ORDERED: ASCORBIC ACID 500 MG TAB PO SCH (09:00)
[2018-01-12] MEDS ORDERED: LISINOPRIL 10 MG TAB PO SCH (09:00)
[2018-01-12] MEDS ORDERED: CALCIUM 600MG + VIT D 400 IU TAB PO SCH (09:00)
[2018-01-12 09:02] LABS: CALCIUM 8.8 mg/dl (8.5-10.1); CREATININE 0.85 mg/dl (0.60-1.20); POTASSIUM 4.1 mmol/L (3.5-5.1)
[2018-01-12 11:00] VITALS: BP 108/71; PULSE 91; TEMP 36.7; O2SAT 97
== END 2018-01-12 15:30 | disposition home or self-care (01) ==
LOC: C.ACU 09:06 → C.MSN 14:07 → ENRESERV 14:22
PROVIDERS: ADMIT Surgery; ATTEND Surgery
DX: K82.8 Other specified diseases of gallbladder (principal); K81.1 Chronic cholecystitis; I10 Essential (primary) hypertension; E03.9 Hypothyroidism, unspecified; G80.9 Cerebral palsy, unspecified; F41.8 Other specified anxiety disorders; E78.5 Hyperlipidemia, unspecified; E78.00 Pure hypercholesterolemia, unspecified; J45.909 Unspecified asthma, uncomplicated; M19.90 Unspecified osteoarthritis, unspecified site; E66.9 Obesity, unspecified; Z68.36 Body mass index [BMI] 36.0-36.9, adult; Z98.890 Other specified postprocedural states; Z79.899 Other long term (current) drug therapy; Z98.41 Cataract extraction status, right eye; Z98.42 Cataract extraction status, left eye; Z88.0 Allergy status to penicillin; Z88.1 Allergy status to other antibiotic agents; Z88.2 Allergy status to sulfonamides; Z83.3 Family history of diabetes mellitus; Z82.49 Family history of ischemic heart disease and other diseases of the circulatory system; Z80.3 Family history of malignant neoplasm of breast

== ENCOUNTER → 2018-05-14 | Outpatient (CLI) | payer OTHER ==
[~2018-05-14] MED LIST changes: -CIPROFLOXACIN / D5W 400 MG IV SCH; -CLON0.5T3 PO; +CLON0.5T9 PO; -GENERAL ORDER PROBLEM SCH; -LACTATED RINGER'S 1000ML 1,000 ML IV SCH
[2018-05-14 12:32] LABS: BASO % 0.4 %; BASO ABS # 0.02 K/uL (0-0.2); EOS % 0.7 %; EOS ABS # 0.04 K/uL (0-0.5); HEMATOCRIT 36.4 % (37-47); HEMOGLOBIN 12.1 g/dL (12.0-16.0); IG# 0.09 K/uL (0.00-0.02); LYMPH % 20.9 %; LYMPH ABS # 1.13 K/uL (1.2-3.4); MEAN CELL VOLUME 94.1 fL (80-100); MEAN CORPUSCULAR HEMOGLOBIN 31.3 pg (25-34); MEAN CORPUSCULAR HGB CONC 33.2 g/dl (32-36); MEAN PLATELET VOLUME 9.6 fL (7.4-10.4); MONO % 11.5 %; MONO ABS # 0.62 K/uL (0.11-0.59); NEUT % 64.8 %; NEUT ABS # 3.51 K/uL (1.4-6.5); PLATELET COUNT 101 K/uL (130-400); RED CELL DISTRIBUTION WIDTH CV 13.5 % (11.5-14.5); RED CELL DISTRIBUTION WIDTH SD 46.2 fL (36.4-46.3); WHITE BLOOD COUNT 5.41 K/uL (4.8-10.8)
[2018-05-14 13:03] LABS: ALBUMIN 3.4 gm/dl (3.4-5.0); ALKALINE PHOSPHATASE 33 U/L (45-117); ALT/SGPT 18 U/L (12-78); AST/SGOT 15 U/L (15-37); BLOOD UREA NITROGEN 6 mg/dl (7-18); CALCIUM 8.6 mg/dl (8.5-10.1); CARBON DIOXIDE 29 mmol/L (21-32); CHOLESTEROL 179 mg/dl (0-200); CREATININE 0.72 mg/dl (0.60-1.20); GLUCOSE 96 mg/dl (70-99); POTASSIUM 4.2 mmol/L (3.5-5.1); SODIUM 138 mmol/L (136-145); TOTAL PROTEIN 6.5 gm/dl (6.4-8.2)
== END | disposition home or self-care (01) ==
LOC: C.LABBFT 09:07
PROVIDERS: ATTEND Surgery
DX: E03.9 Hypothyroidism, unspecified (principal); E78.00 Pure hypercholesterolemia, unspecified; E78.5 Hyperlipidemia, unspecified; K61.1 Rectal abscess; D49.2 Neoplasm of unspecified behavior of bone, soft tissue, and skin; Z01.818 Encounter for other preprocedural examination